=== PATIENT | male | born 1995 | race Caucasian/White ===

== ENCOUNTER 2018-02-08 15:43 | Emergency (ER) | payer OTHER ==
[~2018-02-08] VITALS: Ht 170.2 cm; Wt 74.8 kg
[~2018-02-08 15:43] MED LIST: NO HOME MEDS; NOHOMEMEDS; PAIN CREAM
[2018-02-08 17:09] LABS: APPEARANCE CLEAR ((CLEAR)); BILIRUBIN NEGATIVE; BLOOD NEGATIVE; COLOR YELLOW ((YELLOW)); GLUCOSE (STRIP) NEGATIVE; KETONES NEGATIVE; LEUKOCYTES NEGATIVE; NITRITE NEGATIVE; PROTEIN (STRIP) NEGATIVE; SPECIFIC GRAVITY 1.023 (1.000-1.030); UCUL ADDED? NO; UROBILINOGEN 0.2 MG/DL (0.2-1.0)
[2018-02-08] MEDS ORDERED: FLEXERIL10 MG PO (17:39)
[2018-02-08] MEDS ORDERED: MOTRIN800 MG PO (17:39)
[2018-02-08] MEDS ORDERED: PREDNISONE20 MG PO (17:39)
[2018-02-08 17:45] VITALS: BP 117/80
== END 2018-02-08 17:47 | disposition home or self-care (01) ==
LOC: EME 15:43
PROVIDERS: Nurse Practitioner Family
DX: M54.42 Lumbago with sciatica, left side (principal)
CPT/HCPCS: 72100; 81003; 99281; 99284; J1885; J7512